=== PATIENT | female | born 1950 | race Caucasian/White ===

== ENCOUNTER → 2016-11-12 | Outpatient (CLI) | payer MEDICARE ==
--- NOTE | 2016-11-13 09:45 | MM ---
Reason for exam: screening (asymptomatic). Last mammogram was performed 1 year ago. History: Patient is postmenopausal and had first child at age 37. Family history of breast cancer in sister at age 65. Physical Findings: A clinical breast exam by your physician is recommended on an annual basis and results should be correlated with mammographic findings. MG Screening Mammo w CAD Bilateral CC and MLO view(s) were taken. Prior study comparison: November 07, 2015, bilateral MG screening mammo w CAD. June 22, 2014, bilateral MG screening mammo w CAD. The breast tissue is heterogeneously dense. This may lower the sensitivity of mammography. Benign calcifications. There is no discrete abnormality. No significant changes when compared with prior studies. ASSESSMENT: Benign, BI-RAD 2 RECOMMENDATION: Routine screening mammogram of both breasts in 1 year.
== END | disposition home or self-care (01) ==
LOC: RADMAMWWP 15:02
PROVIDERS: ATTEND Family Medicine
DX: Z12.31 Encounter for screening mammogram for malignant neoplasm of breast (principal)

== ENCOUNTER → 2017-08-09 | Outpatient (CLI) | payer MEDICARE ==
--- NOTE | 2017-08-09 17:44 | XR ---
EXAMINATION TYPE: XR hand limited LT DATE OF EXAM: 08/09/2017 COMPARISON: NONE HISTORY: Chronic left hand pain first and second metacarpals worse TECHNIQUE: 2 view left hand FINDINGS: Osteopenia appears to be present. There is loss of the carpal metacarpal joint space first digit. Some narrowing of the index finger metacarpal phalangeal joint space is present. No acute frac tures evident. Distal interphalangeal joint space narrowing is present. Soft tissues appear normal. IMPRESSION: 1. Osteoarthritic degenerative joint changes. 2. No acute osseous abnormality. 3. Osteopenia. This could be confirmed with bone density.
== END | disposition home or self-care (01) ==
LOC: RADXRMAIN 16:07
PROVIDERS: ATTEND Family Medicine
DX: M19.032 Primary osteoarthritis, left wrist (principal); M85.88 Other specified disorders of bone density and structure, other site

== ENCOUNTER → 2017-12-28 | Outpatient (CLI) | payer MEDICARE ==
--- NOTE | 2017-12-29 12:35 | MM ---
Reason for exam: screening (asymptomatic). Last mammogram was performed 1 year and 2 months ago. History: Patient is postmenopausal and had first child at age 37. Family history of breast cancer in sister at age 65. Physical Findings: A clinical breast exam by your physician is recommended on an annual basis and results should be correlated with mammographic findings. MG Screening Mammo w CAD Bilateral CC and MLO view(s) were taken. Prior study comparison: November 12, 2016, bilateral MG screening mammo w CAD. November 07, 2015, bilateral MG screening mammo w CAD. The breast tissue is heterogeneously dense. This may lower the sensitivity of mammography. Focal asymmetry right breast on CC view 1.6cm from nipple. This finding is changed when compared with previous exams. ASSESSMENT: Incomplete: need additional imaging evaluation, BI-RAD 0 RECOMMENDATION: Special view mammogram of the right breast. If lesion persists on supplemental views, image directed ultrasound is recommended. [facility] will attempt to contact patient to return for supplemental views and ultrasound if indicated.
== END | disposition home or self-care (01) ==
LOC: RADMAMWWP 13:34
PROVIDERS: ATTEND Family Medicine
DX: Z12.31 Encounter for screening mammogram for malignant neoplasm of breast (principal)
CPT/HCPCS: 77067

== ENCOUNTER → 2017-12-31 | Outpatient (CLI) | payer MEDICARE ==
--- NOTE | 2017-12-31 11:30 | MM ---
Reason for exam: additional evaluation requested from abnormal screening. Last mammogram was performed less than 1 month ago. History: Patient is postmenopausal and had first child at age 37. Family history of breast cancer in sister at age 65. Physical Findings: Nurse did not find any significant physical abnormalities on exam. MG Work Up Mamm w CAD RT Spot compression CC and LM view(s) were taken of the right breast. Prior study comparison: December 28, 2017, bilateral MG screening mammo w CAD. November 12, 2016, bilateral MG screening mammo w CAD. no distinct lesion persists on additional views. Asymmetric prominent tissue. These results were verbally communicated with the patient and result sheet given to the patient on 12/31/17. ASSESSMENT: Negative, BI-RAD 1 RECOMMENDATION: Return to routine screening mammogram schedule for both breasts.
== END | disposition home or self-care (01) ==
LOC: RADMAMWWP 10:25
PROVIDERS: ATTEND Family Medicine
DX: R92.8 Other abnormal and inconclusive findings on diagnostic imaging of breast (principal)
CPT/HCPCS: 77065

== ENCOUNTER → 2018-01-12 | Outpatient (CLI) | payer MEDICARE ==
--- NOTE | 2018-01-12 15:25 | XR ---
EXAMINATION TYPE: XR pelvis AP view DATE OF EXAM: 01/12/2018 CLINICAL HISTORY: Lower abdominal and pelvic pain for one week. TECHNIQUE: A single AP view of the pelvis is obtained. COMPARISON: None. FINDINGS: There is no acute fracture/dislocation evident in the pelvis. The hip and sacroiliac join ts appear symmetric and unremarkable. The overlying soft tissue appears unremarkable. Small probable phleboliths are noted within the low pelvis. Mild femoral acetabular arthropathy and degenerative ch brisa of the lumbosacral junction are noted. IMPRESSION: There is no acute fracture or dislocation in the pelvis.
--- NOTE | 2018-01-12 15:59 | XR ---
EXAMINATION TYPE: XR abdomen 1V DATE OF EXAM: 01/12/2018 COMPARISON: NONE HISTORY: Abdominal pain TECHNIQUE: Single supine radiograph of the abdomen is obtained. FINDINGS: There is a moderate amount of retained colonic stool predominating throughout the ascending colon and hepatic flexure. No radiopaque cannulae are seen other than few benign phleboliths within the pelvis. Moderate degenerative changes at the lumbosacral junction and of the femoral acetabular j oints are present. No gross evidence of visceromegaly. IMPRESSION: Moderate amount retained colonic stool in a nonobstructive bowel gas pattern.
== END | disposition home or self-care (01) ==
LOC: RADXRMAIN 14:58
PROVIDERS: ATTEND Family Medicine
DX: R10.2 Pelvic and perineal pain (principal)
CPT/HCPCS: 72170; 74018

== ENCOUNTER → 2018-02-16 | Outpatient (CLI) | payer MEDICARE ==
--- NOTE | 2018-02-17 16:28 | BD ---
EXAMINATION TYPE: Axial Bone Density DATE OF EXAM: 02/16/2018 COMPARISON: 04/20/2011 CLINICAL HISTORY: Height: 58.2 IN Weight: 102 LBS FRAX RISK QUESTIONS: History of Fracture in Adulthood: YES RT WRIST 2014 RISK FACTORS HISTORY OF: History of Wrist Fracture: YES RT WRIST When: AGE 64 Family History of Osteoporosis: YES SISTERS X 4 Active: YES Postmenopausal woman: AGE 48 MEDICATIONS: Osteoporosis Medications: YES Which medication: Evista CALCITONIN How Lon YEARS Additional Medications: EVISTA, CALCIUM, VIT D, OSTEOARTHRITIS MEDS,CALCITONIN EXAM MEASUREMENTS: Bone mineral densitometry was performed using the [employer] System. Bone mineral density as measured about the Lumbar spine is: ----- L1-L4(G/cm2): 0.690 T Score Values are as follows: ----- L2: -4.2 ----- L3: -4.4 ----- L4: -4.2 ----- L1-L4: -4.1 Bone mineral density has: Decreased -7.4% since study of: 04/20/2011 Bone mineral density about the R hip (g/cm2): 0.647 Bone mineral density about the L hip (g/cm2): 0.636 T Score values are as follows: -----R Neck: -2.8 -----L Neck: -2.9 -----R Total: -2.4 -----L Total: -2.6 Bone mineral density has: Decreased -2.8% since study of: 04/20/2011 IMPRESSION: Osteoporosis (T Score less than -2.5). There is increased fracture risk and therapy is usually indicated based on age. Re-Screen 1-2 years. NOTE: T-SCORE=SD OF THE YOUNG ADULT MEAN.
== END | disposition home or self-care (01) ==
LOC: RADBDWWP 15:50
PROVIDERS: ATTEND Family Medicine
DX: M81.0 Age-related osteoporosis without current pathological fracture (principal)
CPT/HCPCS: 77080

== ENCOUNTER → 2018-09-29 | Outpatient (CLI) | payer MEDICARE ==
--- NOTE | 2018-09-29 15:25 | XR ---
EXAMINATION TYPE: XR foot complete LT DATE OF EXAM: 09/29/2018 CLINICAL HISTORY: Pain and swelling worse in heel. TECHNIQUE: Frontal, lateral, and oblique images of the left foot are obtained. COMPARISON: None FINDINGS: Osseous structures are demineralized. There is no acute fracture/dislocation evident in th e left foot. Marked flexion in the toes is present. There is accessory ossicle near the medial navicu lar bone. Curvilinear ossification near base of fifth metatarsal likely reflects unfused growth plate . There are tiny superior and inferior calcaneal spurs. There is mild to moderate diffuse subcutaneou s edema. IMPRESSION: As above
== END | disposition home or self-care (01) ==
LOC: RADXRMAIN 14:05
PROVIDERS: ATTEND Family Medicine
DX: M77.32 Calcaneal spur, left foot (principal)

== ENCOUNTER → 2019-02-15 | Outpatient (CLI) | payer MEDICARE ==
--- NOTE | 2019-02-16 13:12 | MM ---
Reason for exam: screening (asymptomatic). Last mammogram was performed 1 year and 1 month ago. History: Patient is postmenopausal and had first child at age 37. Family history of breast cancer in sister at age 65. Physical Findings: A clinical breast exam by your physician is recommended on an annual basis and results should be correlated with mammographic findings. MG Screening Mammo w CAD Bilateral CC and MLO view(s) were taken. XCCL view(s) were taken of the right breast. Prior study comparison: December 31, 2017, right breast MG work up mamm w CAD RT. December 28, 2017, bilateral MG screening mammo w CAD. The breast tissue is heterogeneously dense. This may lower the sensitivity of mammography. There is no discrete abnormality. No significant changes when compared with prior studies. ASSESSMENT: Negative, BI-RAD 1 RECOMMENDATION: Routine screening mammogram of both breasts in 1 year.
== END | disposition home or self-care (01) ==
LOC: RADMAMWWP 13:49
PROVIDERS: ATTEND Family Medicine
DX: Z12.31 Encounter for screening mammogram for malignant neoplasm of breast (principal)
CPT/HCPCS: 77067

== ENCOUNTER → 2020-02-29 | Outpatient (CLI) | payer MEDICARE ==
--- NOTE | 2020-03-04 09:00 | MM ---
Reason for exam: screening (asymptomatic). Last mammogram was performed 1 year ago. History: Patient is postmenopausal and had first child at age 37. Family history of breast cancer in sister at age 65. Physical Findings: A clinical breast exam by your physician is recommended on an annual basis and results should be correlated with mammographic findings. MG Screening Mammo w CAD Bilateral CC and MLO view(s) were taken. Prior study comparison: February 15, 2019, bilateral MG screening mammo w CAD. December 31, 2017, right breast MG work up mamm w CAD RT. There are scattered fibroglandular densities. Benign appearing bilateral calcifications. ASSESSMENT: Benign, BI-RAD 2 RECOMMENDATION: Routine screening mammogram of both breasts in 1 year.
== END | disposition home or self-care (01) ==
LOC: RADMAMWWP 15:48
PROVIDERS: ATTEND Family Medicine
DX: Z12.31 Encounter for screening mammogram for malignant neoplasm of breast (principal)
CPT/HCPCS: 77067

== ENCOUNTER → 2021-03-31 | Outpatient (CLI) | payer MEDICARE ==
--- NOTE | 2021-04-02 08:13 | MM ---
Reason for exam: screening (asymptomatic). Last mammogram was performed 1 year and 1 month ago. History: Patient is postmenopausal and had first child at age 37. Family history of breast cancer in sister at age 65. Took hormonal contraceptives for 20 years. Physical Findings: A clinical breast exam by your physician is recommended on an annual basis and results should be correlated with mammographic findings. MG 3D Screening Mammo W/Cad Bilateral CC and MLO view(s) were taken. Prior study comparison: February 29, 2020, bilateral MG screening mammo w CAD. February 15, 2019, bilateral MG screening mammo w CAD. December 28, 2017, bilateral MG screening mammo w CAD. The breast tissue is heterogeneously dense. This may lower the sensitivity of mammography. No significant changes when compared with prior studies. ASSESSMENT: Benign, BI-RAD 2 RECOMMENDATION: Routine screening mammogram of both breasts in 1 year.
== END | disposition home or self-care (01) ==
LOC: RADMAMWWP 13:48
PROVIDERS: ATTEND Family Medicine
DX: Z12.31 Encounter for screening mammogram for malignant neoplasm of breast (principal)
CPT/HCPCS: 77063; 77067

== ENCOUNTER → 2021-07-29 | Outpatient (CLI) | payer MEDICARE ==
--- NOTE | 2021-07-30 09:04 | BD ---
EXAMINATION TYPE: Axial Bone Density DATE OF EXAM: 07/29/2021 COMPARISON: NONE CLINICAL HISTORY: Height: 4 FT 10 1/2 IN Weight: 103 FRAX RISK QUESTIONS: Alcohol (3 or more units per day): NO Family History (Parent hip fracture): NO Glucocorticoids (More than 3mos): NO (Ex: prednisone, prednisolone, methylprednisolone, dexamethasone, and hydrocortisone). History of Fracture in Adulthood: YES Secondary Osteoporosis: 1. Type 1 Diabetes: NO 2. Hyperthyroidism: NO 3. Menopause before 45: NO 4. Malnutrition: NO 5. Chronic liver disease: NO Rheumatoid Arthritis: NO Current Tobacco Use: NO RISK FACTORS HISTORY OF: History of Wrist Fracture: RT WRIST When: 2014 Surgery to Spine/Hip(right/left)/Wrist (right/left): NO Family History of Osteoporosis: YES Active: YES Diet low in dairy products/other sources of calcium: NO Postmenopausal woman: YES Take estrogen and/or progesterone medications: NO Lost more than 2 inches in height since high school: YES Frequent falls: NO Poor Health: GOOD Hyperparathyroidism: NO Adrenal Insufficiency: NO MEDICATIONS: Osteoporosis Medications: YES Which medication: EVISTA How Lon YEARS Additional Medications: EVISTA , CALTRATE, VIT D3 Additional History: EXAM MEASUREMENTS: Bone mineral densitometry was performed using the [employer] System. Bone mineral density as measured about the Lumbar spine is: ----- L1-L4(G/cm2): 0.712 T Score Values are as follows: ----- L2: -4.3 ----- L3: -4.1 ----- L4: -4.0 ----- L1-L4: -3.9 Bone mineral density has: INCREASED 2.8% since study of: 2018 Bone mineral density about the R hip (g/cm2): 0.645 Bone mineral density about the L hip (g/cm2): 0.647 T Score values are as follows: -----R Neck: -2.8 -----L Neck: -2.8 -----R Total: -2.4 -----L Total: -2.6 Bone mineral density has: DECREASED -0.3 % since study of: 2018 IMPRESSION: Osteoporosis NOTE: T-SCORE=SD OF THE YOUNG ADULT MEAN.
== END | disposition home or self-care (01) ==
LOC: RADBDWWP 15:43
PROVIDERS: ATTEND Family Medicine
DX: M81.0 Age-related osteoporosis without current pathological fracture (principal)
CPT/HCPCS: 77080

== ENCOUNTER 2021-10-12 17:22 | Emergency (ER) | payer MEDICARE ==
[2021-10-12 17:46] VITALS: RESP 18; TEMP 97.7
--- NOTE | 2021-10-12 19:24 | ED ---
Extremity Problem HPI - General Chief complaint: Extremity Problem,Nontraumatic Stated complaint: weakness, leg pain Time Seen by Provider: 10/12/21 19:13 Source: patient, RN notes reviewed Mode of arrival: wheelchair Limitations: physical limitation - History of Present Illness Initial comments: This is a pleasant 70-year-old female with a history of osteoarthritis. Patient states on Wednesday she had generalized joint aching which resolved. Patient now has pain to her right quadricep area. Patient states that the pain is mostly posterior, sharp in nature, exacerbated by walking and movement. Patient states he has no pain at rest. Denying any other symptomology. No fever or chills. No headache, no fever or chills, no changes in vision or hearing, no sore throat or difficulty with speech, no neck pain, no chest pain or shortness of breath, no abdominal pain, no nausea or vomiting, no changes in urination or bowel mo vements, no numbness or tingling,, no skin rashes or lesions. - Related Data Home Medications Medication Instructions Recorded Confirmed Raloxifene [Evista] 60 mg PO DAILY 07/25/14 03/19/16 Calcium Carb-Vit D 500Mg-5Mcg 1 each PO DAILY 03/17/16 03/19/16 [Oscal 500+D] Cholecalciferol [Vitamin D3] 2,000 unit PO DAILY 03/17/16 03/19/16 Multivit with Calcium,Iron,Min 1 each PO DAILY 03/17/16 03/19/16 [Women's Daily Multivitamin] Previous Rx's Medication Instructions Recorded Acetaminophen [Tylenol] 500 mg PO Q4-6H PRN #24 tab 10/12/21 Naproxen [Naprosyn] 375 mg PO Q12HR PRN #20 tablet 10/12/21 Allergies Allergy/AdvReac Type Severity Reaction Status Date / Time codeine AdvReac Rash/Hives Verified 10/12/21 17:41 Review of Systems ROS Statement: Those systems with pertinent positive or pertinent negative responses have been documented in the HPI. ROS Other: All systems not noted in ROS Statement are negative. Past Medical History Past Medical History: Osteoarthritis (OA) Additional Past Medical History / Comment(s): OSTEOPOROSIS History of Any Multi-Drug Resistant Organisms: None Reported Past Surgical History: Hysterectomy Past Anesthesia/Blood Transfusion Reactions: No Reported Reaction Past Psychological History: No Psychological Hx Reported Smoking Status: Never smoker Past Alcohol Use History: None Reported Past Drug Use History: None Reported - Past Family History Sister(s) Family Medical History: Cancer General Exam Limitations: physical limitation General appearance: alert, in no apparent distress Head exam: Present: atraumatic, normocephalic, normal inspection Eye exam: Present: normal appearance, PERRL, EOMI. Absent: scleral icterus, conjunctival injection, periorbital swelling ENT exam: Present: normal exam, mucous membranes moist Neck exam: Present: normal inspection. Absent: tenderness, meningismus, lymphadenopathy Respiratory exam: Present: normal lung sounds bilaterally. Absent: respiratory distress, wheezes, rales, rhonchi, stridor Cardiovascular Exam: Present: regular rate, normal rhythm, normal heart sounds. Absent: systolic murmur, diastolic murmur, rubs, gallop, clicks GI/Abdominal exam: Present: soft, normal bowel sounds. Absent: distended, tenderness, guarding, rebound, rigid Extremities exam: Present: normal inspection, full ROM, tenderness (Mild tenderness to the distal hamstring area. No erythema. No break in skin integrity. No bony point tenderness. Full range of motion.), normal capillary refill. Absent: pedal edema, joint swelling, calf tenderness Back exam: Present: normal inspection Neurological exam: Present: alert, oriented X3, CN II-XII intact Psychiatric exam: Present: normal affect, normal mood Skin exam: Present: warm, dry, intact, normal color. Absent: rash Course Vital Signs 10/12/21 10/12/21 17:41 21:54 Temperature 97.7 F Pulse Rate 84 88 Respiratory 18 18 Rate Blood Pressure 119/68 118/74 O2 Sat by Pulse 99 99 Oximetry - Reevaluation(s) Reevaluation #1: 10/12/21 22:25 Medical record is reviewed Symptoms are improved here in the emergency department Patient is informed of results and questions answered Patient in no distress Medical Decision Making - Medical Decision Making We'll order a general laboratory work due to the patient's polyarthralgia she was a strange Wednesday which is actually resolved. I think this is muscular in etiology. We'll order a CRP, venous Doppler, plain film x-rays as well. Patient has been asking about Lyme disease, apparently there was some previous concern for exposure. No acute findings on imaging. Patient's laboratory data shows no evidence of acute pathology. All findings discussed with the patient. All questions answered. Follow-up with the primary care physician. Patient was told to return to the ER for any signs or symptoms worsen. Told to return immediately if any other problems arise. All questions answered. Treatment plan discussed. Patient in agreement Every effort has been made to ensure accuracy of this dictation. However, due to the limitations of electronic medical records and dictation devices, errors in charting still occur. Supervising physician is Dr. Peterson - Lab Data Result diagrams: 10/12/21 19:37 10/12/21 19:37 Lab Results 10/12/21 10/12/21 Range/Units 19:37 19:37 WBC 6.7 (3.8-10.6) k/uL RBC 3.90 (3.80-5.40) m/uL Hgb 12.5 (11.4-16.0) gm/dL Hct 39.4 (34.0-46.0) % MCV 101.0 H (80.0-100.0) fL MCH 32.1 (25.0-35.0) pg MCHC 31.7 (31.0-37.0) g/dL RDW 12.8 (11.5-15.5) % Plt Count 214 (150-450) k/uL MPV 8.4 Neutrophils % 72 % Lymphocytes % 17 % Monocytes % 7 % Eosinophils % 1 % Basophils % 1 % Neutrophils # 4.8 (1.3-7.7) k/uL Lymphocytes # 1.2 (1.0-4.8) k/uL Monocytes # 0.5 (0-1.0) k/uL Eosinophils # 0.1 (0-0.7) k/uL Basophils # 0.0 (0-0.2) k/uL Sodium 138 (137-145) mmol/L Potassium 4.4 (3.5-5.1) mmol/L Chloride 105 (98-107) mmol/L Carbon Dioxide 30 (22-30) mmol/L Anion Gap 3 mmol/L BUN 19 H (7-17) mg/dL Creatinine 0.70 (0.52-1.04) mg/dL Est GFR (CKD-EPI)AfAm >90 (>60 ml/min/1.73 sqM) Est GFR (CKD-EPI)NonAf 87 (>60 ml/min/1.73 sqM) Glucose 98 (74-99) mg/dL Calcium 9.1 (8.4-10.2) mg/dL Total Bilirubin 0.3 (0.2-1.3) mg/dL AST 41 H (14-36) U/L ALT 26 (4-34) U/L Alkaline Phosphatase 52 (38-126) U/L Creatine Kinase 97 (30-135) U/L C-Reactive Protein <0.5 (<1.0) mg/dL Total Protein 7.2 (6.3-8.2) g/dL Albumin 4.0 (3.5-5.0) g/dL - Radiology Data Radiology results: report reviewed, image reviewed Disposition Clinical Impression: Right hamstring muscle strain Disposition: HOME SELF-CARE Condition: Good Instructions (If sedation given, give patient instructions): Hamstring Injury (ED) Additional Instructions: Follow-up with your regular physician as directed. Return to the ER immediately if any symptoms worsen, new symptoms arise, or any other problems develop. Is patient prescribed a controlled substance at d/c from ED?: No Referrals: Mike Peterson DO [Primary Care Provider] - 1-2 days Time of Disposition: 22:27
--- NOTE | 2021-10-12 19:56 | XR ---
Right femur. HISTORY: Pain COMPARISON: None. TECHNIQUE: 4 views the right femur were obtained. FINDINGS: There is no fracture, dislocation, intraosseous or intra-articular abnormality. There is no significa nt degeneration of the right hip joint. There is no radiopaque foreign body or abnormal soft tissue c alcification. IMPRESSION: No significant abnormality seen.
--- NOTE | 2021-10-12 19:58 | XR ---
Right knee HISTORY: Pain COMPARISON: None. TECHNIQUE: 3 views the right knee were obtained. FINDINGS: There is no fracture or focal intraosseous abnormality. There is minimal narrowing of the medial comp artment of the right knee indicating mild osteoarthritic change. There is no joint effusion. There is no radiopaque foreign body or abnormal soft tissue calcification. IMPRESSION: 1. No acute trauma. 2. Mild osteoarthritic change of the medial compartment of the knee.
[2021-10-12 20:12] LABS: Basophils % (A) 1 %; Eosinophils # (A) 0.1 k/uL (0-0.7); Eosinophils % (A) 1 %; HCT 39.4 % (34.0-46.0); HGB 12.5 gm/dL (11.4-16.0); Lymphocytes # (A) 1.2 k/uL (1.0-4.8); Lymphocytes % (A) 17 %; MCH 32.1 pg (25.0-35.0); MCHC 31.7 g/dL (31.0-37.0); Mean Platelet Volume 8.4; Monocytes # (A) 0.5 k/uL (0-1.0); Monocytes % (A) 7 %; Neutrophils # (A) 4.8 k/uL (1.3-7.7); Neutrophils % (A) 72 %; Platelet Count 214 k/uL (150-450); RDW 12.8 % (11.5-15.5); WBC 6.7 k/uL (3.8-10.6)
--- NOTE | 2021-10-12 20:23 | US ---
EXAMINATION TYPE: US venous doppler duplex LE RT DATE OF EXAM: 10/12/2021 8:16 PM COMPARISON: NONE CLINICAL HISTORY: Right leg pain. right leg pain. No injury. No history of blood clots. Not on blo od thinners. No redness. No swelling. SIDE PERFORMED: Right TECHNIQUE: The lower extremity deep venous system is examined utilizing real time linear array sonog roselia with graded compression, doppler sonography and color-flow sonography. VESSELS IMAGED: Common Femoral Vein Deep Femoral Vein Greater Saphenous Vein * Femoral Vein Popliteal Vein Small Saphenous Vein * Proximal Calf Veins (* superficial vessels) Right Leg: Negative for DVT Grayscale, color doppler, spectral doppler imaging performed of the deep veins of the right lower ext remity. There is normal flow, compressibility, vascular waveforms. IMPRESSION: No ultrasound evidence for acute DVT in the right lower extremity.
[2021-10-12 20:59] LABS: ALT 26 U/L (4-34); AST 41 U/L (14-36); African American GFR (CKD) >90 (>60 ml/min/1.73 sqM); Alkaline Phosphatase 52 U/L (38-126); Anion Gap 3 mmol/L; Blood Urea Nitrogen 19 mg/dL (7-17); Calcium 9.1 mg/dL (8.4-10.2); Carbon Dioxide 30 mmol/L (22-30); Chloride 105 mmol/L (98-107); Creatine Kinase 97 U/L (30-135); Glucose 98 mg/dL (74-99); Non-African American GFR(CKD) 87 (>60 ml/min/1.73 sqM); Potassium 4.4 mmol/L (3.5-5.1); Sodium 138 mmol/L (137-145); Total Bilirubin 0.3 mg/dL (0.2-1.3); Total Protein 7.2 g/dL (6.3-8.2)
[2021-10-12 21:17] LABS: C Reactive Protein <0.5 mg/dL (<1.0)
[2021-10-12] MEDS ORDERED: KETOROLAC 15 MG/ML 1 ML VIAL IVP STA (22:25)
[2021-10-12 22:54] VITALS: BP 120/81; PULSE 84
== END 2021-10-12 22:55 | disposition home or self-care (01) ==
LOC: EC 17:22
DX: S76.311A Strain of muscle, fascia and tendon of the posterior muscle group at thigh level, right thigh, initial encounter (principal); Z88.5 Allergy status to narcotic agent
CPT/HCPCS: 36415; 80053; 82550; 85025; 86140; 86618; 73552; 73562; 93971; 99285; 96374; J1885

== ENCOUNTER → 2022-04-22 | Outpatient (CLI) | payer MEDICARE ==
--- NOTE | 2022-04-23 12:51 | MM ---
Reason for Exam: Screening (asymptomatic). Last mammogram was performed 1 year(s) and 1 month(s) ago. Patient History: Menarche at age 12. First Full-Term at age 37. Late child-bearing (after 30). Left ovary removed at age 61. Right ovary removed at age 61. Hysterectomy at age 61. Postmenopausal. Currently using Unspecified Hormone, beginning at age 53 for 18 years, 6 months. Sister had breast cancer, age 65. Risk Values: Yuridia 5 year model risk: 3.2%. NCI Lifetime model risk: 7.9%. Prior Study Comparison: 11/07/2015 Bilateral Screening Mammogram, [facility]. 11/12/2016 Bilateral Screening Mammogram, [facility]. 12/28/2017 Bilateral Screening Mammogram, [facility]. 02/15/2019 Bilateral Screening Mammogram, [facility]. 02/29/2020 Bilateral Screening Mammogram, [facility]. 03/31/2021 Bilateral Screening Mammogram, [facility]. Tissue Density: There are scattered fibroglandular densities. Findings: Analyzed By CAD. Few benign vascular calcifications are within the left breast. A few scattered benign punctate calcifications are present. No significant interval change. No suspicious groups of microcalcifications, spiculated or lobular masses, architectural distortion or other secondary signs of malignancy are mammographically apparent. Overall Assessment: Benign, BI-RAD 2 Management: Screening Mammogram of both breasts in 1 year. A negative mammogram report should not preclude additional follow up of suspicious palpable abnormalities. Patient should continue monthly self breast exam. A clinical breast exam by your physician is recommended on an annual basis and results should be correlated with mammographic findings. Electronically signed and approved by: Trent Brown D.O. Radiologis
== END | disposition home or self-care (01) ==
LOC: RADMAMWWP 12:57
PROVIDERS: ATTEND Family Medicine
DX: Z12.31 Encounter for screening mammogram for malignant neoplasm of breast (principal); Z78.0 Asymptomatic menopausal state; Z80.3 Family history of malignant neoplasm of breast; Z90.721 Acquired absence of ovaries, unilateral
CPT/HCPCS: 77063; 77067

== ENCOUNTER 2022-10-20 21:16 | Emergency (ER) | payer OTHER, MEDICARE ==
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
[2022-10-20 21:33] VITALS: TEMP 97.1
[2022-10-20] MEDS ORDERED: traMADol 50 MG TAB PO STA (22:30)
[2022-10-20] MEDS ORDERED: ONDANSETRON ODT 4 MG TAB PO STA (22:30)
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
[2022-10-20] MEDS ORDERED: traMADol 50 MG STARTER PACK 3 TAB BTL PO STA (23:16)
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
[2022-10-20] MEDS ORDERED: MORPHINE SULFATE 4 MG/ML SYRINGE IV STA (23:24)
[2022-10-20] MEDS ORDERED: SODIUM CHLORIDE 0.9% 1,000 ML IV STA (23:24)
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
[2022-10-21 00:04] LABS: Basophils % (A) 0 %; Eosinophils # (A) 0.1 k/uL (0-0.7); Eosinophils % (A) 1 %; HCT 41.1 % (34.0-46.0); Lymphocytes # (A) 0.8 k/uL (1.0-4.8); Lymphocytes % (A) 6 %; MCH 31.8 pg (25.0-35.0); MCHC 31.6 g/dL (31.0-37.0); MCV 100.5 fL (80.0-100.0); Mean Platelet Volume 8.8; Monocytes # (A) 0.5 k/uL (0-1.0); Monocytes % (A) 4 %; Neutrophils # (A) 11.3 k/uL (1.3-7.7); Neutrophils % (A) 89 %; Platelet Count 200 k/uL (150-450); RBC 4.09 m/uL (3.80-5.40); RDW 13.1 % (11.5-15.5); WBC 12.7 k/uL (3.8-10.6)
[2022-10-21 00:22] LABS: ALT 37 U/L (4-34); AST 57 U/L (14-36); African American GFR (CKD) >90 (>60 ml/min/1.73 sqM); Albumin 4.5 g/dL (3.5-5.0); Alkaline Phosphatase 70 U/L (38-126); Anion Gap 10 mmol/L; Blood Urea Nitrogen 21 mg/dL (7-17); Calcium 8.9 mg/dL (8.4-10.2); Carbon Dioxide 25 mmol/L (22-30); Chloride 106 mmol/L (98-107); Glucose 146 mg/dL (74-99); Non-African American GFR(CKD) 88 (>60 ml/min/1.73 sqM); Phosphorus 2.1 mg/dL (2.5-4.5); Potassium 4.1 mmol/L (3.5-5.1); Sodium 141 mmol/L (137-145); Total Bilirubin 0.3 mg/dL (0.2-1.3); Total Protein 7.8 g/dL (6.3-8.2)
[2022-10-21 00:35] LABS: Prothrombin Time 10.1 sec (9.0-12.0)
[2022-10-21 01:00] LABS: Partial Thromboplastin Time 21.5 sec (22.0-30.0)
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
[2022-10-21 03:51] VITALS: BP 102/66; PULSE 97; RESP 18
== END 2022-10-21 03:51 | disposition home or self-care (01) ==
LOC: EC 21:16
DX: S42.021A Displaced fracture of shaft of right clavicle, initial encounter for closed fracture (principal); S22.41XA Multiple fractures of ribs, right side, initial encounter for closed fracture; M19.90 Unspecified osteoarthritis, unspecified site; Z88.5 Allergy status to narcotic agent; Z79.899 Other long term (current) drug therapy; V89.2XXA Person injured in unspecified motor-vehicle accident, traffic, initial encounter
CPT/HCPCS: 36415; 80053; 83605; 83735; 84100; 84484; 85025; 85610; 85730; 71101; 72170; 73000; 72125; 70450; 71260; 74177; 99285; 96374; 96361 ×4; 23650; J2270; Q9967

== ENCOUNTER → 2022-10-29 | Outpatient (CLI) | payer MEDICARE ==
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
[2022-10-29 20:21] LABS: INR 0.95 (0.90-1.11); Prothrombin Time 10.8 sec (9.9-11.9)
[2022-10-29 20:53] LABS: Basophils # (A) 0.03 X 10*3/uL (0.00-0.10); Basophils % (A) 0.4 %; Eosinophils # (A) 0.06 X 10*3/uL (0.04-0.35); Eosinophils % (A) 0.8 %; HCT 33.2 % (37.2-46.3); HGB 10.5 g/dL (12.0-15.0); Immature Grans, Automated 0.6 %; Lymphocytes # (A) 0.71 X 10*3/uL (0.90-5.00); Lymphocytes % (A) 8.9 %; MCH 32.3 pg (27.0-32.0); MCHC 31.6 g/dL (32.0-37.0); MCV 102.2 fL (80.0-97.0); Mean Platelet Volume 10.8 fL (9.5-12.2); Monocytes % (A) 7.5 %; NRBC Per 100 WBC 0 /100 WBCS (0.0-0.0); Neutrophils # (A) 6.53 X 10*3/uL (1.80-7.70); Neutrophils % (A) 81.8 %; Platelet Count 184 X 10*3/uL (140-440); RBC 3.25 X 10*6/uL (4.10-5.20); RDW 13.7 % (11.5-14.5); WBC 7.98 X 10*3/uL (4.50-10.00)
[2022-10-29 21:16] LABS: African American GFR (CKD) 104.8 (60.0-200.0); Anion Gap 13.5 mmol/L (10.00-18.00); BUN/Creat Ratio 35.83 Ratio (12.00-20.00); Blood Urea Nitrogen 21.5 mg/dL (9.0-27.0); Calcium 8.9 mg/dL (8.7-10.3); Carbon Dioxide 23.5 mmol/L (20.0-27.5); Non-African American GFR(CKD) 90.4 (60.0-200.0)
== END | disposition home or self-care (01) ==
LOC: LABPAT 12:11
PROVIDERS: ATTEND Orthopaedic Surgery
DX: Z01.812 Encounter for preprocedural laboratory examination (principal); S42.001A Fracture of unspecified part of right clavicle, initial encounter for closed fracture; Y99.9 Unspecified external cause status; J44.9 Chronic obstructive pulmonary disease, unspecified; M95.4 Acquired deformity of chest and rib
CPT/HCPCS: 71046; 80048; 85025; 85610; 93005

== ENCOUNTER 2022-11-05 09:51 | Day surgery (SDC) | payer MEDICARE, OTHER ==
[2022-11-03 10:39] VITALS: BMI 18.8
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
[~2022-11-05 09:51] MED LIST: DEXAMETHASONE SOD PHOSPHATE 4 MG/ML 1 ML VIAL IV ONE; HYDROmorphone 0.5 MG/0.5 ML SYRINGE IVP PRN; LACTATED RINGERS 1,000 ML IV SCH; LIDOCAINE 1% (10MG/ML) FOR IV START INTRADERMA PRN; MIDAZOLAM 2 MG/2 ML VIAL IV PRN; ONDANSETRON 4 MG/2 ML VIAL IVP ONE
[2022-11-05] MEDS ORDERED: LACTATED RINGERS 1,000 ML IV ONE (12:32)
[2022-11-05] MEDS ORDERED: ROPIVACAINE 5 MG/ML 30 ML VIAL ONE (12:46)
[2022-11-05] MEDS ORDERED: LIDOCAINE 2% INJ 20 MG/ML (2 ML VIAL) ONE (12:46)
[2022-11-05] MEDS ORDERED: SUCCINYLCHOLINE CHLORIDE 200 MG/10 ML VIAL IV ONE (12:46)
[2022-11-05] MEDS ORDERED: DEXAMETHASONE SOD PHOSPHATE 4 MG/ML 1 ML VIAL ONE (12:46)
[2022-11-05] MEDS ORDERED: fentaNYL (PF) 50 MCG/ML 2 ML AMP ONE (12:46)
[2022-11-05] MEDS ORDERED: PHENYLEPHRINE-0.9% NACL SYG 1,000 MCG/10 ML SYRINGE ONE (12:46)
[2022-11-05] MEDS ORDERED: PROPOFOL 10 MG/ML 20 ML VIAL IV ONE (12:46)
[2022-11-05 13:13] VITALS: TEMP 97.5
--- NOTE | 2022-11-05 13:54 | XR ---
EXAMINATION TYPE: XR clavicle RT DATE OF EXAM: 11/05/2022 COMPARISON: 10/29/2022 HISTORY: 71-year-old female status post right clavicle ORIF TECHNIQUE: 2 views FINDINGS: Interval placement of plate and screw fixation across the transverse mid right clavicular s haft fracture. Alignment grossly anatomic. There appears to be a tiny comminuted shard of bone along the inferior fracture site rotated by 90 degrees. Some narrowing of the subacromial space on the righ t. Unclear if this is projectional. IMPRESSION: 1. Gross anatomic alignment of the transverse mid clavicular shaft fracture after plate and screw fix ation. Small 1.1 cm comminuted fracture fragment along the inferior margin rotated by 90 degrees. 2. Possible underlying full-thickness rotator cuff tear.
[2022-11-05 14:28] VITALS: BP 130/85; PULSE 65; RESP 16
--- NOTE | 2022-11-05 14:32 | FL ---
EXAMINATION TYPE: FL guidance operating room, XR clavicle RT DATE OF EXAM: 11/05/2022 CLINICAL HISTORY: Right clavicle fracture. TECHNIQUE: Fluoroscopy. Intraoperative 2 views right clavicle. COMPARISON: Outside right clavicle x-ray October 28, 2022 FINDINGS: Fluoroscopic guidance was provided during (reduction internal fixation procedure performed by Dr. Ramirez. A total of 19 seconds of fluoroscopic time was utilized during the procedure and 4 spot images are acquired. Images acquired show placement of fixating plate along superior surface of comminuted displaced fract ure of the mid right clavicle. Improved alignment is seen after reduction and fixation. Total DAP = [id number] mGy x m2 IMPRESSION: As Above.
--- NOTE | 2022-11-05 16:47 | P.DS ---
Providers Date of admission: 11/05/22 Expected date of discharge: 11/05/22 Attending physician: Adan Ramirez DO Primary care physician: Mike [facility] Hospital Course: Hospital Course: The patient was evaluated preoperatively and found to have the diagnosis of a right clavicle fracture. They underwent appropriate preoperative care and were willing to undergo the intended procedure. They underwent a successful Right clavicle ORIF, were recovered appropriately and was discharge home. The patient will be discharged home with appropriate medications, instructions and follow-up information and in stable condition. Patient Condition at Discharge: Good Plan - Discharge Summary Discharge Rx Participant: No New Discharge Prescriptions: New Cyclobenzaprine [Flexeril] 5 mg PO TID PRN #60 tablet PRN Reason: Muscle Spasm HYDROcodone/APAP 5-325MG [Bryant 5-325] 1 tab PO Q4HR PRN #42 tab PRN Reason: Pain cefaDROXiL [Duricef] 500 mg PO Q12HR 5 Days #10 cap No Action Raloxifene [Evista] 60 mg PO DAILY Cholecalciferol [Vitamin D3] 2,000 unit PO DAILY Multivit with Calcium,Iron,Min [Women's Daily Multivitamin] 1 each PO DAILY Naproxen [Naprosyn] 375 mg PO Q12HR PRN #20 tablet PRN Reason: Pain Calcitonin Nasal [Fortical (Miacalcin)] 1 spray NASAL DAILY HYDROcodone/APAP 5-325MG [Bryant 5-325] 1 tab PO Q6HR PRN PRN Reason: Pain Cyclobenzaprine [Flexeril] 5 mg PO TID PRN PRN Reason: Muscle Spasm Mayo/D3/Mag11/Zinc/Recycling Coordinator/Curtis/Bor [Caltrate 600+D Plus Tablet] 1 each PO DAILY Docusate [Colace] 100 mg PO DAILY PRN PRN Reason: Constipation Discharge Medication List Raloxifene [Evista] 60 mg PO DAILY 07/25/14 [History] Cholecalciferol [Vitamin D3] 2,000 unit PO DAILY 03/17/16 [History] Multivit with Calcium,Iron,Min [Women's Daily Multivitamin] 1 each PO DAILY 03/17/16 [History] Naproxen [Naprosyn] 375 mg PO Q12HR PRN #20 tablet 10/12/21 [Rx] Mayo/D3/Mag11/Zinc/Recycling Coordinator/Curtis/Bor [Caltrate 600+D Plus Tablet] 1 each PO DAILY 11/03/22 [History] Calcitonin Nasal [Fortical (Miacalcin)] 1 spray NASAL DAILY 11/03/22 [History] Cyclobenzaprine [Flexeril] 5 mg PO TID PRN 11/03/22 [History] Docusate [Colace] 100 mg PO DAILY PRN 11/03/22 [History] HYDROcodone/APAP 5-325MG [Bryant 5-325] 1 tab PO Q6HR PRN 11/03/22 [History] Cyclobenzaprine [Flexeril] 5 mg PO TID PRN #60 tablet 11/05/22 [Rx] HYDROcodone/APAP 5-325MG [Bryant 5-325] 1 tab PO Q4HR PRN #42 tab 11/05/22 [Rx] cefaDROXiL [Duricef] 500 mg PO Q12HR 5 Days #10 cap 11/05/22 [Rx] Follow up Appointment(s)/Referral(s): Mike Peterson DO [Primary Care Provider] - 1 Week Adan Ramirez DO [Doctor of Osteopathic Medicine] - 2 Weeks Patient Instructions/Handouts: *Surgery [facility] - (Anesthesia) Discharge Instructions Outpatient Surgery, Clavicle Fracture (DC) Activity/Diet/Wound Care/Special Instructions: Orthopedic Discharge Instructions: 1. Wound care and infection precautions, keep incision dry and covered while showering, no lotions, creams, moisturizers. No soaking, pools, hot tubs. Do not scrub over incision. Leave glue and mesh intact, do not pull off mesh. 2. Utilize the arm sling 3. Ice and elevate when necessary. Do not exceed 20 minutes per hour with ice pack. 4. Pain meds and anticoagulants per prescription. 5. Pain medication has potential to cause constipation. Increase oral fluid and fiber intake. Contact primary care provider if you have not had a bowl movement within 48 hours after discharge. 6. No anti-inflammatory medication until discussed at first post operative visit, this including Motrin, Aleve, Mobic, Diclofenac, [Aspirin]. 7. Follow up in office at [address] Ramirez 8. Follow up with your primary care doctor 7-10 days after discharge. 9. Contact [facility] with any questions. Discharge Disposition: HOME SELF-CARE
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
--- NOTE | 2022-11-06 06:32 | P.ANPRN ---
Procedure Note - Anesthesia - Nerve Block Performed Right Superficial Cervical Plexus Block Single Time Out Performed: Yes Date of Procedure: 11/05/22 Procedure Start Time: 10:55 Procedure Stop Time: 10:59 Location of Patient: PreOp Indication: Acute Post-Operative Pain, Requested by Surgeon Sedation Type: Sedate with meaningful contact maintained Preparation: Sterile Prep Position: Left Lateral Needle Types: Pajunk Needle Gauge: 21 Ultrasound used to visualize needle placement: Yes Ultrasound used to observe medication spread: Yes Blood Aspirated: No Pain Paresthesia on Injection Noted: No Resistance on Injection: Normal Image Stored and Saved: Yes Events: Uneventful and Well Tolerated (ropi .5% 8cc)
--- NOTE | 2022-11-06 06:33 | P.ANPRN ---
Procedure Note - Anesthesia - Nerve Block Performed Right Interscalene Single Time Out Performed: Yes Date of Procedure: 11/05/22 Procedure Start Time: 11:00 Procedure Stop Time: 11:02 Location of Patient: PreOp Indication: Acute Post-Operative Pain, Requested by Surgeon Sedation Type: Sedate with meaningful contact maintained Preparation: Sterile Prep Position: Supine Needle Types: Pajunk Ultrasound used to visualize needle placement: Yes Ultrasound used to observe medication spread: Yes Blood Aspirated: No Pain Paresthesia on Injection Noted: No Resistance on Injection: Normal Image Stored and Saved: Yes Events: Uneventful and Well Tolerated (riopi .5% 12cc plus dexamethasone 4mg)
== END 2022-11-05 15:15 | disposition home or self-care (01) ==
LOC: OR 09:51
PROVIDERS: ATTEND Orthopaedic Surgery
DX: S42.021A Displaced fracture of shaft of right clavicle, initial encounter for closed fracture (principal); V49.60XA Unspecified car occupant injured in collision with unspecified motor vehicles in traffic accident, initial encounter; G89.18 Other acute postprocedural pain; M81.0 Age-related osteoporosis without current pathological fracture; M19.90 Unspecified osteoarthritis, unspecified site; Z79.899 Other long term (current) drug therapy; Z88.5 Allergy status to narcotic agent; Z88.6 Allergy status to analgesic agent
CPT/HCPCS: 23515; 64415; 64999; 73000; C1713; J2250; J0330; J1100; J2405; J0690; J3010; J2795; J2370; J2704; J2001

== ENCOUNTER → 2023-06-22 | Outpatient (CLI) | payer MEDICARE ==
[2023-06-22 18:45] LABS: Basophils # (A) 0.03 X 10*3/uL (0.00-0.10); Basophils % (A) 0.5 %; Eosinophils # (A) 0.06 X 10*3/uL (0.04-0.35); Eosinophils % (A) 1.1 %; HCT 38.5 % (37.2-46.3); HGB 12.7 g/dL (12.0-15.0); Lymphocytes # (A) 1.17 X 10*3/uL (0.90-5.00); Lymphocytes % (A) 21.2 %; MCH 32.2 pg (27.0-32.0); MCV 97.5 FL (80.0-97.0); Mean Platelet Volume 10.7 FL (9.5-12.2); Monocytes # (A) 0.51 X 10*3/uL (0.20-1.00); Monocytes % (A) 9.2 %; NRBC Per 100 WBC 0 X 10*3/uL (0.00-0.01); Neutrophils # (A) 3.74 X 10*3/uL (1.80-7.70); Neutrophils % (A) 67.6 %; Platelet Count 200 X 10*3/uL (140-440); RBC 3.95 X 10*6/uL (4.10-5.20); RDW 13.2 % (11.5-14.5); WBC 5.53 X 10*3/uL (4.50-10.00)
[2023-06-22 19:03] LABS: BUN/Creat Ratio 25.83 Ratio (12.00-20.00); Blood Urea Nitrogen 15.5 mg/dL (9.0-27.0); Calcium 9.3 mg/dL (8.7-10.3); Carbon Dioxide 27.6 mmol/L (21.6-31.8); Chloride 102 mmol/L (96-109); Glucose 92 mg/dL (70-110); Potassium 3.6 mmol/L (3.5-5.5); Sodium 140 mmol/L (135-145)
== END | disposition home or self-care (01) ==
LOC: LABWHC1 15:11
PROVIDERS: ATTEND Family Medicine
DX: M81.0 Age-related osteoporosis without current pathological fracture (principal)
CPT/HCPCS: 36415; 80048; 82306; 85025

== ENCOUNTER → 2023-07-30 | Outpatient (CLI) | payer MEDICARE ==
--- NOTE | 2023-07-30 17:31 | BD ---
EXAMINATION TYPE: Axial Bone Density DATE OF EXAM: 07/30/2023 CLINICAL HISTORY: 72 years old Female. ICD-10 CODE: Z78.0 AYSMPTOMATIC MENOPAUSAL STA Height: 4 ft 10 1/4 in Weight: 103 FRAX RISK QUESTIONS: Alcohol (3 or more units per day): no Family History (Parent hip fracture): no Glucocorticoids (More than 3mos): no (Ex: prednisone, prednisolone, methylprednisolone, dexamethasone, and hydrocortisone). History of Fracture in Adulthood: yes Secondary Osteoporosis: 1. Type 1 Diabetes: no 2. Hyperthyroidism: no 3. Menopause before 45: no 4. Malnutrition: no 5. Chronic liver disease: no Rheumatoid Arthritis: no Current Tobacco Use: no RISK FACTORS HISTORY OF: History of Wrist Fracture: rt wrist When: unsure Surgery to Spine/Hip(right/left)/Wrist (right/left): none MEDICATIONS: Thyroid Medications: none Osteoporosis Medications: yes Which medication: evista How Long: approx 20 years EXAM MEASUREMENTS: Bone mineral densitometry was performed using the check24 System. Bone mineral density as measured about the Lumbar spine is: ----- L1-L4(G/cm2): 0.704 T Score Values are as follows: ----- L1: -3.4 ----- L2: -4.2 ----- L3: -4.2 ----- L4: -4.1 ----- L1-L4: -4.0 Z Score Values are as follows: ----- L1: -1.1 ----- L2: -1.9 ----- L3: -1.9 ----- L4: -1.7 ----- L1-L4: -1.6 Bone mineral density has: decreased -1.1 % since study of: 2021 Bone mineral density about the R hip (g/cm2): 0.598 Bone mineral density about the L hip (g/cm2): 0.601 T Score values are as follows: -----R Neck: -3.2 -----L Neck: -3.1 -----R Total: -2.6 -----L Total: -2.7 Z Score values are as follows: -----R Neck: -0.9 -----L Neck: -0.8 -----R Total: -0.5 -----L Total: -0.5 Bone mineral density has: decreased -2.0 % since study of: 2021 FRAX%s: The graph provided illustrates a 18.7 % chance for a major osteoporotic fx and a 7.4 % chance for the hips probability for fx in 10 years time. IMPRESSION: Osteoporosis (T Score less than -2.5). There is increased fracture risk and therapy is usually indicated based on age. Re-Screen 1-2 years. NOTE: T-SCORE=SD OF THE YOUNG ADULT MEAN.
--- NOTE | 2023-08-02 19:44 | MM ---
Reason for Exam: Screening (asymptomatic). Last mammogram was performed 1 year(s) and 3 month(s) ago. Patient History: Menarche at age 12. First Full-Term at age 37. Late child-bearing (after 30). Left ovary removed at age 61. Right ovary removed at age 61. Hysterectomy at age 61. Postmenopausal. Currently using Unspecified Hormone, beginning at age 53 for 18 years, 6 months. Sister had breast cancer, age 65. Risk Values: Yuridia 5 year model risk: 3.3%. NCI Lifetime model risk: 7.4%. Prior Study Comparison: 02/29/2020 Bilateral Screening Mammogram, [facility]. 03/31/2021 Bilateral Screening Mammogram, [facility]. 04/22/2022 Bilateral MG 3D screening mammo w/cad, [facility]. Tissue Density: The breast tissue is heterogeneously dense. This may lower the sensitivity of mammography. Findings: Analyzed By CAD. There is no suspicious group of microcalcifications or new suspicious mass in either breast. Overall Assessment: Negative, BI-RAD 1 Management: Screening Mammogram of both breasts in 1 year. See note below in regards to patient's increased 5 year Yuridia score. Patient should continue monthly self-breast exams. A clinical breast exam by your physician is recommended on an annual basis. This exam should not preclude additional follow-up of suspicious palpable abnormalities. Note on Yuridia scores and lifetime risk: 1. A Yuridia score greater than 3% is considered moderate risk. If this is the case, consider specialist referral to assess eligibility for a risk reducing agent. 2. If overall lifetime risk for the development of breast cancer is 20% or higher, the patient may qualify for future screening with alternating mammogram and breast MRI. Electronically signed and approved by: Antonio Hayden M.D. Radiologist
== END | disposition home or self-care (01) ==
LOC: RADMAMWWP 12:59
PROVIDERS: ATTEND Family Medicine
DX: Z12.31 Encounter for screening mammogram for malignant neoplasm of breast (principal); M81.0 Age-related osteoporosis without current pathological fracture; M85.89 Other specified disorders of bone density and structure, multiple sites; Z78.0 Asymptomatic menopausal state
CPT/HCPCS: 77063; 77067; 77080

== ENCOUNTER → 2024-09-20 | Outpatient (CLI) | payer MEDICARE ==
--- NOTE | 2024-09-20 16:03 | MM ---
Reason for Exam: Screening (asymptomatic). Last mammogram was performed 1 year(s) and 2 month(s) ago. Patient History: Menarche at age 12. First Full-Term at age 37. Late child-bearing (after 30). Left ovary removed at age 61. Right ovary removed at age 61. Hysterectomy at age 61. Postmenopausal. Currently using Unspecified Hormone, beginning at age 53 for 18 years, 6 months. Sister had breast cancer, age 65. Risk Values: Yuridia 5 year model risk: 3.3%. NCI Lifetime model risk: 7.0%. Prior Study Comparison: 03/31/2021 Bilateral Screening Mammogram, [facility]. 04/22/2022 Bilateral MG 3D screening mammo w/cad, [facility]. 07/30/2023 Bilateral MG 3D screening mammo w/cad, [facility]. Tissue Density: The breasts are heterogeneously dense, which may obscure small masses. Findings: Analyzed By CAD. Areas of asymmetric density and regional punctate calcifications are unchanged. There is no suspicious group of microcalcifications or new suspicious mass in either breast. Overall Assessment: Benign, BI-RAD 2 Management: Screening Mammogram of both breasts in 1 year. See note below in regards to the patient's increased 5 year Yuridia score. Patient should continue monthly self-breast exams. A clinical breast exam by your physician is recommended on an annual basis. This exam should not preclude additional follow-up of suspicious palpable abnormalities. Note on Yuridia scores and lifetime risk: 1. A Yuridia score greater than 3% is considered moderate risk. If this is the case, consider specialist referral to assess eligibility for a risk reducing agent. 2. If overall lifetime risk for the development of breast cancer is 20% or higher, the patient may qualify for future screening with alternating mammogram and breast MRI. [facility], , 09/20/2024 4:00 PM. Electronically signed and approved by: Antonio Hayden M.D. Radiologist
== END | disposition home or self-care (01) ==
LOC: RADMAMWWP 13:32
PROVIDERS: ATTEND Family Medicine
DX: Z12.31 Encounter for screening mammogram for malignant neoplasm of breast (principal); R92.333 Mammographic heterogeneous density, bilateral breasts; Z78.0 Asymptomatic menopausal state; Z80.3 Family history of malignant neoplasm of breast
CPT/HCPCS: 77063; 77067